=== PATIENT | female | born 1955 | race Caucasian/White ===

== ENCOUNTER → 2021-01-08 | Outpatient (CLI) | payer OTHER, BC ==
[~2021-01-08] MED LIST: DIPH1TAB6 PO; IPRA15SP NAS
[2021-01-08 16:39] LABS: BASOPHILS % (AUTO) 3 % (0-1); EOSINOPHILS % (AUTO) 3 % (1-7); LYMPHOCYTES % (AUTO) 35 % (22-44); MEAN CORPUSCULAR HEMOGLOBIN 32.1 pg (27.0-34.8); MEAN CORPUSCULAR HGB CONC 33.7 g/dL (32.4-35.8); MEAN PLATELET VOLUME 8.1 fL (7.4-10.4); MONOCYTES % (AUTO) 11 % (2-9); NEUTROPHILS % (AUTO) 48 % (42-75); PLATELET COUNT 273 x10^3/uL (130-400); RED BLOOD COUNT 4.29 x10^6/uL (3.82-5.3); RED CELL DISTRIBUTION WIDTH 14.2 % (9.6-15.2)
[2021-01-08 16:43] LABS: ALANINE AMINOTRANSFERASE 31 U/L (12-78); ALBUMIN 4.1 g/dL (3.4-5.0); ANION GAP 8 mmol/L (5-15); CALCIUM 9.6 mg/dL (8.5-10.1); CHLORIDE 107 mmol/L (98-107); CREATININE 0.97 mg/dL (0.55-1.02)
[2021-01-08 16:44] LABS: INTERNATIONAL NORMALIZED RATIO 0.99 (0.93-1.1); PROTHROMBIN TIME 10.6 Seconds (9.6-11.5)
[2021-01-08 16:46] LABS: ALKALINE PHOSPHATASE 52 U/L (45-117); BILIRUBIN,TOTAL 1.4 mg/dL (0.2-1.0); TOTAL PROTEIN 7.2 g/dL (6.4-8.2)
== END | disposition home or self-care (01) ==
LOC: STAR 15:08
PROVIDERS: ATTEND Obstetrics & Gynecology
DX: Z01.818 Encounter for other preprocedural examination (principal); C17.9 Malignant neoplasm of small intestine, unspecified; Z20.822 Contact with and (suspected) exposure to COVID-19
CPT/HCPCS: 36415; 71046; 80053; 85025; 85610; 85730; 93005; U0003; U0005

== ENCOUNTER 2021-01-14 09:54 | Day surgery (SDC) | payer OTHER, BC ==
[~2021-01-14] VITALS: Ht 170.2 cm; Wt 70.7 kg
[2021-01-14] MEDS ORDERED: HEPARIN 1,000 UNITS/ML, 10ML ONE (09:57)
[2021-01-14] MEDS ORDERED: BUPIVACAINE/PF 0.25% ONE (09:57)
[2021-01-14] MEDS ORDERED: INDOCYANINE GREEN 25 MG VIAL ONE (09:57)
[2021-01-14] MEDS ORDERED: CHLORHEXIDINE 15 ML UDC ONE (10:08)
[2021-01-14 10:12] VITALS: BP 136/67
[2021-01-14] MEDS ORDERED: FENTANYL PF 250 MCG/5ML ONE (10:23)
[2021-01-14] MEDS ORDERED: MIDAZOLAM 1 MG/ML, 2ML ONE (10:23)
[2021-01-14] MEDS ORDERED: CEFOTETAN PMX 2GM/50ML 50 ML IVPB ONE (10:30)
[2021-01-14] MEDS ORDERED: CHLORHEXIDINE 15 ML UDC PO ONE (10:30)
[2021-01-14] MEDS ORDERED: LACTATED RINGERS 1,000 ML IV SCH (10:30)
[2021-01-14] MEDS ORDERED: SUGAMMADEX 200 MG/2 ML IVPush ONE (10:45)
[2021-01-14] MEDS ORDERED: PHENYLEPHRINE 10 MG/ML ONE (10:45)
[2021-01-14] MEDS ORDERED: PROPOFOL 10 MG/ML, 20ML ONE (10:45)
[2021-01-14] MEDS ORDERED: ROCURONIUM 10 MG/ML,10ML ONE (10:45)
[2021-01-14] MEDS ORDERED: DEXAMETHASONE 4 MG/ML, 1ML ONE (10:45)
[2021-01-14] MEDS ORDERED: ONDANSETRON 2MG/ML, 2ML ONE (10:45)
[2021-01-14] MEDS ORDERED: CEFOTETAN 2 GM ONE (10:45)
[2021-01-14] MEDS ORDERED: FENTANYL PF 100 MCG/2ML ONE ×3 (12:15→14:54)
[2021-01-14] MEDS ORDERED: HYDROmorphone 1 MG/ML, 1ML INJ IVPush PRN (14:00)
[2021-01-14] MEDS ORDERED: DIAZEPAM 5 MG/ML, 2ML IVPush PRN (14:00)
[2021-01-14] MEDS ORDERED: LABETALOL 5MG/ML, 20ML IV PRN (14:00)
[2021-01-14] MEDS ORDERED: MEPERIDINE/PF 25MG/0.5ML IVPush PRN (14:00)
[2021-01-14] MEDS ORDERED: ONDANSETRON 2MG/ML, 2ML IVPush PRN (14:00)
[2021-01-14] MEDS ORDERED: hydrALAzine 20 MG/ML, 1ML IV PRN (14:00)
[2021-01-14] MEDS ORDERED: METOPROLOL 1 MG/ML, 5ML IV PRN (14:00)
[2021-01-14] MEDS ORDERED: PROMETHAZINE 25 MG/ML, 1ML IVPush PRN (14:00)
[2021-01-14] MEDS ORDERED: ACETAMINOPHEN 325 MG TABLET PO PRN (14:00)
[2021-01-14] MEDS ORDERED: LORazepam 2 MG/ML, 1ML IVPush PRN (14:00)
[2021-01-14] MEDS ORDERED: ACETAMINOPHEN 650 MG/20.3 ML UDC ONE (14:54)
[2021-01-14] MEDS ORDERED: OXYcodone 5 MG/5 ML ORAL.SOL UDC ONE (14:54)
[2021-01-14] MEDS: OXYcodone 5 MG/5 ML ORAL.SOL UDC PO PRN ×2 (14:57→15:50)
[2021-01-14] MEDS: FENTANYL PF 100 MCG/2ML IV PRN ×2 (15:00→15:20)
== END 2021-01-14 18:05 | disposition home or self-care (01) ==
LOC: OUT 09:54
PROVIDERS: ATTEND Obstetrics & Gynecology
DX: N95.0 Postmenopausal bleeding (principal); D06.9 Carcinoma in situ of cervix, unspecified; N83.311 Acquired atrophy of right ovary; N83.312 Acquired atrophy of left ovary; N73.6 Female pelvic peritoneal adhesions (postinfective); Z79.899 Other long term (current) drug therapy; Z85.038 Personal history of other malignant neoplasm of large intestine; Z87.891 Personal history of nicotine dependence; Z90.49 Acquired absence of other specified parts of digestive tract; Z92.21 Personal history of antineoplastic chemotherapy; Z80.42 Family history of malignant neoplasm of prostate
CPT/HCPCS: 36415; 58571; 86850; 86900; 86923; 88307; J0171; J1100; J1170; J2250; J2370; J2405; J2704; J3010; J7120; S2900; J1644